=== PATIENT | male | born 1995 | race Two or more races ===

== ENCOUNTER 2020-12-30 14:24 | Emergency (ER) | payer OTHER, SELFPAY ==
[~2020-12-30] VITALS: Ht 180.3 cm; Wt 77.2 kg
[2020-12-30 14:43] VITALS: BP 133/69
== END 2020-12-30 17:11 | disposition left against medical advice (07) ==
LOC: M ED 14:24
DX: Z53.21 Procedure and treatment not carried out due to patient leaving prior to being seen by health care provider (principal)